=== PATIENT | male | born 1965 | race Caucasian/White ===

== ENCOUNTER 2021-10-31 13:58 | Emergency (ER) | payer OTHER ==
[~2021-10-31] VITALS: Ht 175.3 cm; Wt 66.7 kg
[2021-10-31 15:25] VITALS: BP 112/72
== END 2021-10-31 15:20 | disposition home or self-care (01) ==
LOC: EDH 13:58
DX: G56.32 Lesion of radial nerve, left upper limb (principal); F17.200 Nicotine dependence, unspecified, uncomplicated; Z88.0 Allergy status to penicillin; Z98.890 Other specified postprocedural states
CPT/HCPCS: 73090